=== PATIENT | male | born 1955 | race African-American/Black ===

== ENCOUNTER 2023-03-01 12:03 | Emergency (ER) | payer OTHER ==
[~2023-03-01] VITALS: Ht 165.1 cm; Wt 80.0 kg
[~2023-03-01 12:03] MED LIST: AMLO10TA4 PO; CIPR-263 PO; CLON1PAT11 TD; METR500T PO; OMEP20CA4 PO
[2023-03-01 12:05] VITALS: O2SAT 100
[2023-03-01 12:50] LABS: BASOPHILS % 0.7 % (0.0-2.0); HEMOGLOBIN. 18.7 g/dL (14.0-18.0); LYMPHOCYTES % 13.7 % (20.0-50.0); MEAN CORPUSCULAR HEMOGLOBIN 33.4 pg (28.0-32.0); MEAN CORPUSCULAR HGB CONC 33.4 g/dL (31.0-37.0); MEAN CORPUSCULAR VOLUME 100.2 fL (80.0-94.0); MONOCYTES % 6.7 % (2.0-8.0); NEUTROPHILS % 77.9 % (40.0-76.0); RED BLOOD CELL COUNT 5.59 mill/uL (4.7-6.1); WHITE BLOOD COUNT 11.7 x1000/uL (4.5-11.0)
[2023-03-01 12:59] LABS: DIFFERENTIAL COMMENT 1
[2023-03-01 13:01] LABS: PROTHROMBIN TIME 11.1 sec (9.6-11.0)
[2023-03-01 13:22] LABS: ALANINE AMINOTRANSFERASE 27 IU/L (10-49); ALBUMIN 4.2 g/dL (3.2-4.8); ASPARTATE AMINOTRANSFERASE 24 IU/L (<34); BILIRUBIN TOTAL 1.1 mg/dL (0.1-1.0); CARBON DIOXIDE 23 mEq/L (21-32); CHLORIDE 106 mEq/L (98-107); CREATININE 1.4 mg/dL (0.6-1.3); GLUCOSE 114 mg/dL (70-105); PLATELET 163 x1000/uL (130-400); POTASSIUM 3.6 mEq/L (3.5-5.1); PROTEIN TOTAL 7.6 g/dL (6.0-8.3); SODIUM 138 mEq/L (136-145); TROPONIN I HIGH SENSITIVITY 4 ng/L (3.0-53); UREA NITROGEN BLOOD 28 mg/dL (9-23)
[2023-03-01] MEDS ORDERED: ASPIRIN 325MG TABLET PO ONE (14:00)
[2023-03-01 14:03] LABS: CLARITY URINE CLEAR (CLEAR); COLOR URINE YELLOW (YELLOW); GLUCOSE URINE NEGATIVE (NEGATIVE); KETONES URINE TRACE (NEGATIVE); LEUKOCYTE ESTERASE URINE NEGATIVE (NEGATIVE); NITRITE URINE NEGATIVE (NEGATIVE); OCCULT BLOOD URINE NEGATIVE (NEGATIVE); PH URINE 5.5 (4.5-8.0); PROTEIN URINE NEGATIVE (NEGATIVE); SPECIFIC GRAVITY URINE 1.024 (1.005-1.030)
[2023-03-01 15:39] LABS: TROPONIN I HIGH SENSITIVITY 5 ng/L (3.0-53)
[2023-03-01 16:40] VITALS: BP 125/75; PULSE 58; RESP 18; TEMP 98.5
== END 2023-03-01 17:21 | disposition short-term general hospital (02) ==
LOC: ER 12:03
DX: I63.9 Cerebral infarction, unspecified (principal); I10 Essential (primary) hypertension
CPT/HCPCS: 36415; 71045; 72170; 80053; 81003; 84484; 85025; 99285